=== PATIENT | male | born 1975 ===

== ENCOUNTER 2024-03-17 12:15 | Day surgery (SDC) | payer OTHER, SELFPAY ==
[2024-03-17 13:43] VITALS: BP 128/79; PULSE 73; RESP 16; TEMP 36.4; O2SAT 97
[2024-03-17] MEDS: LACTATED RINGERS 1,000 ML 42 ML IV (14:01)
--- NOTE | 2024-03-17 14:19 | PM.HP.1 ---
History of Present Illness History of Present Illness Date Patient Seen: 03/17/24 Time Patient Seen: 14:19 Chief complaint: Screening Colonoscopy Narrative: 48-year-old man here for 1st time screening colonoscopy. No family history of intestinal malignancy. No intestinal concerns today. [facility] Social History Smoking Status: Current every day smoker alcohol intake: current Meds Home Medications and Allergies Home Medications Medication Instructions Recorded Confirmed Type metformin 500 mg tablet,extended 500 mg PO BID 03/17/24 03/17/24 History release 24 hr rosuvastatin 10 mg tablet 10 mg PO ONCE PM 03/17/24 03/17/24 History sildenafil 100 mg tablet PO 03/17/24 History telmisartan 40 mg tablet 40 mg PO DAILY 03/17/24 03/17/24 History Allergies Allergy/AdvReac Type Severity Reaction Status Date / Time No Known Drug Allergies Allergy Verified 03/17/24 13:37 Exam Vital Signs (past 8 hours): - 03/17/24 13:43 Temperature 97.6 F Pulse Rate 73 Respiratory Rate 16 Blood Pressure 128/79 Pulse Oximetry 97 Oxygen Delivery Method Room Air Oxygen Delivery Method Room Air Narrative Exam Narrative: General adult man alert oriented no acute distress Chest nonlabored respiration Extremities warm well perfused Assessment & Plan Assessment & Plan narrative: The patient requires colorectal screening and colonoscopy is recommended. Technical details were discussed. Risks, benefits, alternatives explained. Risks including but not limited to myocardial infarction, aspiration, bleeding, pain, missed lesion, incomplete examination, need for further radiographic studies, intestinal injury, and need for major abdominal surgery were discussed. All questions were answered to their satisfaction, and they are in agreement with this plan.
--- NOTE | 2024-03-17 14:46 | P.OP.COLON_ITS ---
Operative Date/Time/Diagnoses Date of procedure: 03/17/24 Time of procedure: 14:47 Pre-op diagnosis: Colorectal screening Procedure & Clinicians Study performed: Screening colonoscopy Same procedure as scheduled: Yes Indications: Colorectal screening Surgeon: Akhil Bills Procedure Notes Procedure in detail: The history and physical was performed/updated and the patient is ASA class is 2. The procedure was discussed in detail with the patient. Potential risks co mplications including infection, bleeding, missed diagnosis, perforation, need for surgery, and were explained. Their questions were answered and informed consent was obtained. Patient was brought to the procedure room and placed standard monitoring equipment. The patient's vital signs were monitored continuously throughout the entire procedure. Prior to starting time-out was performed. The patient was placed in the left lateral recumbent position. Procedural sedation was administered by anesthesia. Examination began with a thorough inspection of the perianal area there was no evidence of fissures, fistulae, external hemorrhoids or cutaneous malignancy. The colonoscopy scope was then placed into the anal canal and was advanced to the cecum, which was identified by the ileocecal valve, the appendiceal orifice and the confluence of the taenia. The scope was then slowly withdrawn examining colon thoroughly in all directions, irrigating it of any residual stool. The scope was retroflexed within the rectum The patient tolerated the procedure well. They will be discharged once criteria are met. The prep was of good/excellent quality. The withdrawl time was 6 minutes. FINDINGS * Internal hemorrhoids * Sigmoid diverticulosis mild Specimen(s): none sent Impression: Normal colonoscopy Post-procedure Recommendations: High fiber diet Disposition: same day surgery
[2024-03-17 14:47] VITALS: BP 99/56; PULSE 80; RESP 22; TEMP 36.2; O2SAT 94
[2024-03-17 14:52] VITALS: BP 110/63; PULSE 76; RESP 19; O2SAT 93
[2024-03-17 14:57] VITALS: BP 108/49; PULSE 71; RESP 15; TEMP 36.2; O2SAT 98
[2024-03-17 15:02] VITALS: BP 117/85; PULSE 64; RESP 16; O2SAT 98
== END 2024-03-17 15:15 | disposition home or self-care (01) ==
PROVIDERS: PCP Family Medicine; Referring Provider Surgery; Visit Provider Surgery
PROC: 0DJD8ZZ Inspection of Lower Intestinal Tract, Via Natural or Artificial Opening Endoscopic (ICD-10-PCS; CPT 45378; principal; 2024-03-17 13:00)
DX: Z12.11 Encounter for screening for malignant neoplasm of colon (principal); K64.8 Other hemorrhoids; K57.30 Diverticulosis of large intestine without perforation or abscess without bleeding
CPT/HCPCS: 45378; J2704